=== PATIENT | male | born 1950 | race Caucasian/White ===

== ENCOUNTER → 2020-02-21 | Outpatient (CLI) | payer MEDICARE, BC ==
--- NOTE | 2020-02-21 12:33 | CT ---
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 FINDINGS: Postsurgical change involving the calvarium with area of encephalomalacia involving the left temporal parietal junction. There is a calcified density along the inner table of the left parietal convexity measuring 2 cm which could represent osteoma or calcified meningioma. Mild mass effect along the adj acent cortex. Mild generalized degenerative change. Intracranial atherosclerotic changes are noted. IMPRESSION: 1. Postsurgical change with no residual mass in the region of previous surgical resection. 2. Persistent calcified extra-axial lesion along the inner table with mild mass effect upon the adjac ent cortex of the left parietal convexity. Osteoma versus calcified meningioma stable from prior exam .
== END | disposition home or self-care (01) ==
LOC: RADCTMAIN 12:08
PROVIDERS: ATTEND Family Medicine
DX: G93.89 Other specified disorders of brain (principal); D32.0 Benign neoplasm of cerebral meninges; Z88.5 Allergy status to narcotic agent; Z98.890 Other specified postprocedural states
CPT/HCPCS: 70450

== ENCOUNTER → 2021-04-16 | Outpatient (CLI) | payer MEDICARE, BC | END | disposition home or self-care (01) | LOC: LABPAT 11:24 | PROVIDERS: ATTEND Orthopaedic Surgery | DX: Z01.812 Encounter for preprocedural laboratory examination (principal) | CPT/HCPCS: 87070 ==

== ENCOUNTER → 2021-06-17 | Outpatient (CLI) | payer MEDICARE, BC ==
[2021-06-17 14:40] LABS: Basophils # (A) 0.1 k/uL (0-0.2); Basophils % (A) 1 %; Eosinophils # (A) 0.1 k/uL (0-0.7); Eosinophils % (A) 1 %; HCT 47.1 % (39.0-53.0); Lymphocytes # (A) 2.7 k/uL (1.0-4.8); Lymphocytes % (A) 32 %; MCH 32.2 pg (25.0-35.0); MCV 94.7 fL (80.0-100.0); Mean Platelet Volume 7.5; Monocytes # (A) 0.5 k/uL (0-1.0); Monocytes % (A) 6 %; Neutrophils # (A) 4.9 k/uL (1.3-7.7); Neutrophils % (A) 58 %; Platelet Count 313 k/uL (150-450); RBC 4.98 m/uL (4.30-5.90); RDW 12.4 % (11.5-15.5); WBC 8.4 k/uL (3.8-10.6)
[2021-06-17 14:47] LABS: INR 1.1 (<1.2)
[2021-06-17 14:48] LABS: Prothrombin Time 11.3 sec (9.0-12.0)
[2021-06-17 14:50] LABS: Potassium 4.1 mmol/L (3.5-5.1)
== END | disposition home or self-care (01) ==
LOC: LABPAT 14:20
PROVIDERS: ATTEND Orthopaedic Surgery
DX: Z01.812 Encounter for preprocedural laboratory examination (principal)
CPT/HCPCS: 80051; 85025; 85610

== ENCOUNTER → 2021-06-17 | Outpatient (CLI) | payer MEDICARE, BC | END | disposition home or self-care (01) | LOC: LABWHC1 13:55 | PROVIDERS: ATTEND Orthopaedic Surgery | DX: Z53.9 Procedure and treatment not carried out, unspecified reason (principal) ==

== ENCOUNTER 2021-06-24 13:15 | Day surgery (SDC) | payer MEDICARE, BC ==
[2021-06-20 11:25] VITALS: BMI 34.4
--- NOTE | 2021-06-23 10:27 | HP ---
HISTORY AND PHYSICAL DATE OF SURGERY: 06/24/2021 Darek Gorman is a 70-year-old patient seen with symptomatic right knee osteoarthritis. We discussed options for treatment. He elected to proceed with right total knee arthroplasty. Consent was obtained. Medical clearance was provided by Dr. Ronaldo Bui. PAST MEDICAL HISTORY: Hypertension. PAST SURGICAL HISTORY: Left total knee arthroplasty. DAILY MEDICATIONS: Losartan, hydrochlorothiazide, carvedilol. ALLERGIES: CODEINE. SOCIAL HISTORY: He denies tobacco use. PHYSICAL EVALUATION OF THE RIGHT KNEE: His range of motion is negative 3/4 to 100 degrees. Mild effusion. Tenderness along the medial joint line. Crepitus in medial and patellofemoral compartments with range of motion. Pain with patellofemoral compression. Ligaments stable. Hip rotation without pain. Distal neurovascular exam intact. RADIOGRAPHS: Radiographs of the right knee revealed severe osteoarthritic changes. IMPRESSION: 1. Right knee osteoarthritis. 2. Hypertension. PLAN: Right total knee arthroplasty. MMODL / IJN: [id number] /
[~2021-06-24 13:15] MED LIST: ACETAMINOPHEN TAB 500 MG TAB PO PRN; DEXAMETHASONE SOD PHOSPHATE 4 MG/ML 1 ML VIAL IV ONE; HYDROmorphone 0.5 MG/0.5 ML SYRINGE IVP PRN; MELOXICAM 7.5 MG TAB PO PRN; ONDANSETRON 4 MG/2 ML VIAL IVP ONE; TRANEXAMIC ACID 1,000 MG in SODIUM CHLORIDE 0.9% 100 ML IVPB PRN
[2021-06-24] MEDS ORDERED: ONDANSETRON 4 MG/2 ML VIAL ONE (13:37)
[2021-06-24] MEDS: LACTATED RINGERS 1,000 ML IV SCH ×2 (13:54→23:21)
[2021-06-24] MEDS ORDERED: MIDAZOLAM 2 MG/2 ML VIAL IVP ONE (14:06)
[2021-06-24] MEDS ORDERED: PHENYLEPHRINE-0.9% NACL SYG 1,000 MCG/10 ML SYRINGE ONE (14:27)
[2021-06-24] MEDS ORDERED: KETAMINE 10 MG/ML 20 ML VIAL ONE (14:27)
[2021-06-24] MEDS ORDERED: MIDAZOLAM 2 MG/2 ML VIAL ONE (14:27)
[2021-06-24] MEDS ORDERED: fentaNYL (PF) 50 MCG/ML 2 ML AMP ONE (14:27)
[2021-06-24] MEDS ORDERED: PROPOFOL 10 MG/ML 20 ML VIAL IV ONE (14:27)
[2021-06-24] MEDS ORDERED: ROPIVACAINE 5 MG/ML 30 ML VIAL ONE (14:27)
[2021-06-24] MEDS ORDERED: SODIUM CHLORIDE 0.9% 100 ML BAG ONE (14:27)
[2021-06-24] MEDS ORDERED: TRANEXAMIC ACID 1,000 MG/10 ML VIAL ONE (14:27)
[2021-06-24] MEDS ORDERED: DEXAMETHASONE SOD PHOSPHATE 4 MG/ML 1 ML VIAL ONE (14:27)
[2021-06-24] MEDS ORDERED: ONDANSETRON 4 MG/2 ML VIAL IVP PRN (16:50)
[2021-06-24] MEDS ORDERED: HYDROmorphone 0.2 MG/1 ML SYRINGE IVP PRN (16:50)
[2021-06-24] MEDS ORDERED: HYDROmorphone 0.5 MG/0.5 ML SYRINGE IVP PRN (16:50)
[2021-06-24] MEDS ORDERED: traMADol 50 MG TAB PO PRN (16:50)
[2021-06-24] MEDS ORDERED: HYDROcodone/APAP 5-325MG 1 EACH TAB PO PRN ×2 (16:50)
[2021-06-24] MEDS ORDERED: NALOXONE 0.4 MG/ML 1 ML VIAL IV PRN (16:50)
--- NOTE | 2021-06-24 16:50 | P.OP ---
Date of Procedure: 06/24/21 Preoperative Diagnosis: Right knee osteoarthritis Postoperative Diagnosis: Right knee osteoarthritis Procedure(s) Performed: Right total knee arthroplasty Implants: 1. Depuy attune size 8 right cruciate retaining cemented femur 2. Depuy attune size 8 fixed bearing cemented tibial baseplate 3. Depuy attune size 8 fixed bearing cruciate retaining 10 mm polyethylene tibial insert 4. Depuy attune 41 mm all polyethylene cemented patella Anesthesia: regional (Adductor canal catheter, Ipack block), spinal Surgeon: Nnamdi Sánchez Spooler Operator #1: Teto Schneider Estimated Blood Loss (ml): 45 Pathology: other (bone) Condition: stable Disposition: PACU Indications for Procedure: 70-year-old patient with symptomatic right knee osteoarthritis. After treatment options were discussed, he elected to proceed with total knee arthroplasty. Operative Findings: see description of procedure Description of Procedure: Patient was taken to the operative suite after having an adductor canal catheter placed by the department of anesthesia as well as and Ipack block for postoperative pain management. Patient underwent a spinal anesthetic by the department of anesthesia. Patient was given preoperative IV intake antibiotics and TXA. A well-padded tourniquet was placed about the right lower extremity. The lower extremity was then prepped and draped in the normal sterile orthopedic fashion. The extremity was elevated, a tourniquet was insufflated to 300. A standard anterior incision was made sharply through skin. Dissection was taken down through the subcutaneous soft tissues down to the extensor mechanism. A medial arthrotomy was performed, patella was everted and knee was flexed. There was advanced osteoarthritis noted. I introduced my distal intramedullary femoral drill. I then introduced the distal femoral cutting jig. Denton SALAZAR secured the cutting jig with 2 pins. I held retractors in position while Denton SALAZAR performed the distal femoral resection through the guide area we now removed her distal femoral cutting guide. We now placed our 4-in-1 femoral cutting block and positioned and it was secured with 2 pins by Denton SALAZAR while I held the block in position. The distal femoral finishing was now completed. A proximal tibial cutting guide was positioned. I held the guide in the appropriate position with both hands well Denton SALAZAR inserted stabilizing pins into the guide. Proximal tibial cut was made. We now placed a trial femoral component into position, along with an appropriate size tibial tray and insert. We now took the knee through range of motion and had full extension good flexion and good overall soft tissue balance noted. The patella was everted and stabilized with 2 towel clips held by Denton SALAZAR while I performed a flush with patellar quad tendon utilizing a fresh sawblade. We templated the patella, appropriate drill holes were made. An appropriate trial patella was positioned, knee was taken through full range of motion with the patella tracking very nicely. The trial patella was removed. Drill holes were made through the femoral component. All trial components were removed after m arking off the appropriate rotation of the tibia. Retractors were now positioned along the proximal tibia. An appropriate keel punch was made with the appropriate size tibial guide by myself on Denton SALAZAR assisted by holding retractors. At this point appropriate size implants were chosen and opened. The joint was irrigated copiously with pulse lavage mechanical irrigation. The posterior capsule was infiltrated with local analgesic. The wound was irrigated with pulse lavage mechanical irrigation. We mixed antibiotic methylmethacrylate. We placed the knee into flexion. We placed mul tiple retractors assisted by Denton SALAZAR to expose the proximal tibia. Once the methyl methacrylate was ready, the tibial component was cemented into place removing any excess methylmethacrylate form by both myself and Denton SALAZAR. The femoral component was cemented into place removing the removing any excess methylmethacrylate performed by both myself and Denton SALAZAR. We then inserted the appropriate size polyethylene tibial insert. We made sure that it was locked into position. We took the knee into full extension, and then back in a flexion making sure we had removed any excess methylmethacrylate. The patellar component was then cemented down and secured with clamp. Excess methylmethacrylate removed. We kept the knee in full extension, patellar clamp in position until methylmethacrylate had hardened. Once it had hardened the patellar clamp was removed. The knee was taken through full range of motion. The patella tracked nicely. There was good soft tissue balancing. The tourniquet was now released. Additional hemostasis was achieved via electrocautery. A second gram of TXA was given. The wound again was irrigated with pulse lavage mechanical irrigation. The superficial soft tissues were infiltrated local analgesic. The extensor mechanism was repaired with interrupted Ethibond. We checked the repair with range of motion and it was stable. The subcutaneous soft tissues were repaired with Vicryl in layers. The skin was approximated with pernio/Dermabond. Sterile dressings were applied followed by loose web roll and Josh bandage. The patient was transferred to a bed, and taken to recovery in stable and satisfactory condition. Denton SALAZAR assisted with this complex procedure.
--- NOTE | 2021-06-24 18:09 | XR ---
EXAMINATION TYPE: XR knee limited RT DATE OF EXAM: 06/24/2021 COMPARISON: 03/19/2021 HISTORY: Knee surgery TECHNIQUE: 2 views FINDINGS: There is right knee prosthesis. Components are in anatomic position. IMPRESSION: No complicating process seen.
[2021-06-24] MEDS: HYDROmorphone 0.5 MG/0.5 ML SYRINGE IVP PRN ×2 (19:33→23:29)
[2021-06-24] MEDS ORDERED: ACETAMINOPHEN TAB 500 MG TAB PO PRN (20:03)
[2021-06-24] MEDS ORDERED: SENNOSIDES-DOCUSATE SODIUM 1 EACH TAB PO SCH (21:00)
[2021-06-24] MEDS ORDERED: CITALOPRAM HYDROBROMIDE 20 MG TAB PO SCH (21:00)
[2021-06-24] MEDS ORDERED: ENOXAPARIN 30 MG/0.3 ML SYRINGE SQ SCH (21:00)
[2021-06-25] MEDS: HYDROmorphone 0.5 MG/0.5 ML SYRINGE IVP PRN (04:03)
[2021-06-25] MEDS: LACTATED RINGERS 1,000 ML IV SCH ×2 (04:05→10:44)
[2021-06-25] MEDS ORDERED: carvediloL 6.25 MG TAB PO SCH (07:30)
--- NOTE | 2021-06-25 07:38 | P.PN ---
Progress Note - Text 06/25/21 650am 70-year-old male status post total knee replacement, patient has an On-Q pump for postop pain control, solution is running at 8 mL an hour with a VAS of 2. Patient does complain of posterior knee pain. She rates it at 8 out of 10 and that's because the Ipack block has worn off
--- NOTE | 2021-06-25 07:41 | P.ANPRN ---
Procedure Note - Anesthesia - Nerve Block Performed Right Adductor Canal Infusion Time Out Performed: Yes Date of Procedure: 06/24/21 Procedure Start Time: 14:05 Procedure Stop Time: 14:09 Location of Patient: PreOp Indication: Acute Post-Operative Pain, Requested by Surgeon Sedation Type: Sedate with meaningful contact maintained Preparation: Sterile Prep, Sterile Dressing Position: Supine Catheter: Indwelling Needle Types: Pajunk Needle Gauge: 21 Ultrasound used to visualize needle placement: Yes Ultrasound used to observe medication spread: Yes Blood Aspirated: No Pain Paresthesia on Injection Noted: No Resistance on Injection: Normal Image Stored and Saved: Yes Events: Uneventful and Well Tolerated (Ropivacaine 0.5% 20 mL)
--- NOTE | 2021-06-25 07:42 | P.ANPRN ---
Procedure Note - Anesthesia - Nerve Block Performed Right Ashleyck Single Time Out Performed: Yes Date of Procedure: 06/25/21 Procedure Start Time: 14:20 Procedure Stop Time: 14:24 Location of Patient: PreOp Indication: Acute Post-Operative Pain, Requested by Surgeon Sedation Type: Sedate with meaningful contact maintained Preparation: Sterile Prep Position: Supine Needle Types: Pajunk Needle Gauge: 21 Ultrasound used to visualize needle placement: Yes Ultrasound used to observe medication spread: Yes Blood Aspirated: No Pain Paresthesia on Injection Noted: No Resistance on Injection: Normal Image Stored and Saved: Yes Events: Uneventful and Well Tolerated (Ropivacaine 0.5% 20 mL plus dexamethasone 4 mg)
[2021-06-25 08:19] VITALS: BP 124/73; PULSE 79; RESP 16; TEMP 98.3
[2021-06-25] MEDS ORDERED: MELOXICAM 7.5 MG TAB PO SCH (09:00)
[2021-06-25] MEDS ORDERED: LOSARTAN 50 MG TAB PO SCH (09:00)
[2021-06-25] MEDS ORDERED: APIXABAN 5 MG TAB PO SCH (09:00)
[2021-06-25] MEDS ORDERED: MULTIVITAMINS, THERA 1 EACH TAB PO SCH (09:00)
[2021-06-25] MEDS ORDERED: hydroCHLOROthiazide 25 MG TAB PO SCH (09:00)
[2021-06-25 10:15] LABS: Basophils # (A) 0.03 X 10*3/uL (0.00-0.10); Basophils % (A) 0.2 %; Eosinophils # (A) 0 X 10*3/uL (0.04-0.35); Eosinophils % (A) 0 %; HCT 39.9 % (39.6-50.0); HGB 13.6 g/dL (13.0-17.0); Lymphocytes % (A) 16.7 %; MCH 32.2 pg (27.0-32.0); MCHC 34.1 g/dL (32.0-37.0); MCV 94.5 fL (80.0-97.0); Mean Platelet Volume 10.5 fL (9.5-12.2); Monocytes # (A) 1.46 X 10*3/uL (0.20-1.00); Monocytes % (A) 11.1 %; Neutrophils % (A) 71.5 %; Platelet Count 317 X 10*3/uL (140-440); RBC 4.22 X 10*6/uL (4.40-5.60); RDW 12.4 % (11.5-14.5); WBC 13.15 X 10*3/uL (4.50-10.00)
[2021-06-25] MEDS ORDERED: PANTOPRAZOLE 40 MG/10 ML VIAL IVP SCH (10:15)
--- NOTE | 2021-06-25 10:22 | P.CONS ---
History of Present Illness - Reason for Consult Consult date: 06/25/21 Medical management hypertension, atrial fibrillation, anxiety Requesting physician: Nnamdi Sánchez - Chief Complaint Symptomatic Osteoarthritis, right knee - History of Present Illness This is a pleasant 70-year-old gentleman status post right total knee arthroplasty secondary symptomatic right knee osteoarthritis, in a patient with past medical history of chronic atrial fibrillation, hypertension, osteoarthritis, anxiety, former smoker other medical issues. Tolerated procedure well. Reports positive pain-states more pain with this operation compared to prior surgery. Passing flatus. Denies lightheadedness dizziness or focal deficits. PT pending. Denies chest pain, palpitations or shortness of breath. Vital signs stable, afebrile, maintaining O2 sats in the 90s on room air. WBC 13.15, suspect reactive. Review of Systems Constitutional: Denied any fatigue denied any fever. Cardio vascular: denied any chest pain, palpitations Gastrointestinal denied any nausea vomiting Pulmonary: Denied any shortness of breath cough Neurologic denied any new focal deficits ROS Statement: Those systems with pertinent positive or pertinent negative responses have been documented in the HPI. ROS Other: All systems not noted in ROS Statement are negative. Past Medical History Past Medical History: Atrial Fibrillation, Hypertension, Osteoarthritis (OA) History of Any Multi-Drug Resistant Organisms: None Reported Past Surgical History: Joint Replacement Additional Past Surgical History / Comment(s): total left knee, left parietal craniotomy for meningioma. Past Anesthesia/Blood Transfusion Reactions: No Reported Reaction Past Psychological History: Anxiety Smoking Status: Former smoker Past Alcohol Use History: Occasional Additional Past Alcohol Use History / Comment(s): quit smoking 1973, hx of 2 ppd., smoked 10 years. Past Drug Use History: None Reported - Past Family History Mother Family Medical History: Cancer Additional Family Medical History / Comment(s): bone cancer Father Family Medical History: Cancer Additional Family Medical History / Comment(s): lung cancer Medications and Allergies Home Medications Medication Instructions Recorded Confirmed Type Acetaminophen [Tylenol Extra 1,000 mg PO DIRECTED PRN 06/20/21 06/24/21 History Strength] Apixaban [Eliquis] 5 mg PO BID 06/20/21 06/24/21 History Citalopram Hydrobromide 20 mg PO HS 06/20/21 06/24/21 History [Citalopram HBr] Losartan Potassium 100 mg PO DAILY 06/20/21 06/24/21 History Multivit-Mins/Iron/Folic/Lycop 1 each PO DAILY 06/20/21 06/24/21 History [Centrum Men's Tablet] carvediloL phosphate [Coreg Cr] 20 mg PO DAILY 06/20/21 06/24/21 History hydroCHLOROthiazide 25 mg PO DAILY 06/20/21 06/24/21 History Allergies Allergy/AdvReac Type Severity Reaction Status Date / Time codeine Allergy Unknown Itching Verified 06/24/21 13:33 Physical Exam Vitals: Vital Signs Temp Pulse Resp BP Pulse Ox 06/25/21 08:00 98.3 F 79 16 124/73 96 06/25/21 02:20 98.0 F 97 148/82 94 L 06/24/21 20:11 82 116/76 92 L 06/24/21 19:41 77 121/86 94 L 06/24/21 19:12 97 121/86 06/24/21 18:56 81 108/77 95 06/24/21 18:42 97.4 F L 74 18 137/98 97 06/24/21 18:41 82 126/94 06/24/21 18:26 99 128/94 96 06/24/21 18:12 97.4 F L 97 137/98 97 06/24/21 17:30 90 16 142/90 96 06/24/21 17:15 86 16 132/86 96 06/24/21 17:00 96.8 F L 89 16 125/88 96 06/24/21 14:27 90 16 125/83 98 06/24/21 13:40 97.1 F L 84 16 181/94 98 Intake and Output 06/24/21 06/25/21 06/25/21 22:59 06:59 14:59 Intake Total 800 600 Output Total 45 200 Balance 755 400 Intake: IV 200 Oral 600 600 Output: Urine 200 Estimated Blood Loss 45 Other: Voiding Method Urinal # Voids 3 Weight 110.5 kg PHYSICAL EXAM: VITAL SIGNS: As above GENERAL: Sitting up in bed, no acute distress HEENT: Conjunctivae normal. eyes normal. Oral mucosa moist NECK: No JVD. No thyroid enlargement. No LNs CARDIOVASCULAR: S1, S2 regular.No murmur RESPIRATION: Breath sounds diminished in the bases. No rhonchi or crackles. No bronchial breathing. ABDOMEN: Soft, nontender . No guarding. no masses palpable. No ascites, No hepatosplenomegaly.Bowel sounds heard. EXTREMITIES: Right knee dressings clean dry and intact, mild edema, denies calf pain, positive DP pulse PSYCHIATRY: Alert and oriented X3, mood and affect normal. NERVOUS SYSTEM: Cranial N 2-12 grossly normal. Moves all 4 limbs. No focal deficits. Strength and sensation grossly intact.. Skin: Warm and dry, no rash Assessment and Plan Assessment: Symptomatic right knee osteoarthritis, status post right total knee arthroplasty Leukocytosis mild, suspect reactive Hypertension Chronic atrial fibrillation Former nicotine dependence Anxiety Plan: Continue on current medication regime ,monitoring and symptomatic treatment. Home meds have been reviewed and resumed accordingly. PPI added on for GI prophylaxis. Continues on Eliquis for anticoagulation. Leukocytosis, Suspect Reactive, UA with Culture Ordered. Repeat CBC and BMP in a.m. if not discharged. PT pending. Pain management as per orthopedic surgery. Aggressive pulmonary toileting with incentive spirometer reinforced. Potential discharge home later today as per primary/orthopedic surgery. Follow-up with Dr. Bui, PCP in 1 week post discharge. Thank you Dr. Sánchez for the consult. The impression and plan of care has been dictated as directed. : I performed a history and examination of this patient, discussed the same with the dictator. I agree with the dictator's note ,documented as a scribe. Any additional findings or plans will be noted.
--- NOTE | 2021-06-25 10:45 | P.PN ---
Subjective Progress Note Date: 06/25/21 Principal diagnosis: Status post right total knee arthroplasty Patient is examined bedside, he is resting comfortably. He is ambulating well with therapy, he has had no difficulties. Pain is currently controlled with current medication. Denies any headaches, lightheadedness, chest pain or shortness of breath. He denies any difficulties with urination at this time. Objective - Vital Signs Vital signs: Vital Signs Temp 98.3 F 06/25/21 08:00 Pulse 79 06/25/21 08:00 Resp 16 06/25/21 08:00 BP 124/73 06/25/21 08:00 Pulse Ox 96 06/25/21 08:00 Intake & Output 06/24/21 06/25/21 06/25/21 18:59 06:59 18:59 Intake Total 750 1200 Output Total 45 200 Balance 705 1000 Weight 110.5 kg Intake: IV 750 Oral 1200 Output: Urine 200 Estimated Blood Loss 45 Other: Voiding Method Urinal Urinal # Voids 3 - Exam Right lower extremity: Incision is clean, dry, and intact. The exofin fusion tape is in good condition. There is minimal soft tissue swelling and ecchymosis surrounding the medial and lateral aspects of the incision. Calf is soft, no tenderness with palpation. Plantar flexion, dorsiflexion, EHL, FHL are intact. Sensory exam to light touch throughout the extremity is intact, dorsal pedis pulses 2+. - Labs CBC & Chem 7: 06/25/21 05:49 Labs: Abnormal Lab Results - Last 24 Hours (Table) 06/25/21 Range/Units 05:49 WBC 13.15 H (4.50-10.00) X 10*3/uL RBC 4.22 L (4.40-5.60) X 10*6/uL MCH 32.2 H (27.0-32.0) pg Immature Gran # 0.06 H (0.00-0.04) X 10*3/uL Neutrophils # 9.40 H (1.80-7.70) X 10*3/uL Monocytes # 1.46 H (0.20-1.00) X 10*3/uL Eosinophils # 0 L (0.04-0.35) X 10*3/uL Assessment and Plan Assessment: Postoperative day #1 status post right total knee arthroplasty Plan: Pain control, plan for discharge home on [place] along with Lyrica GI and DVT prophylaxis, aspirin 81 mg twice a day for 30 days Home care instructions were discussed, this to include removal of the OnQ ball catheter and showering instructions Icing and elevating techniques discussed Home health care, this including therapy at home Discharge planning: Patient is stable for discharge home today Time with Patient: Less than 30
--- NOTE | 2021-06-25 10:50 | P.DS ---
Providers Date of admission: 06/24/2021 Expected date of discharge: 06/25/21 Attending physician: Nnamdi Sánchez Consults: 06/24/21 16:50 Consult Physician Routine Consulting Provider: Ronaldo Bui Reason/Comments: Medical management Do you want consulting provider notified?: Yes Primary care physician: Ronaldo Bui Hospital Course: Date of admission: 06/24/2021 Date of discharge: 06/25/2021 Admission diagnosis: Status post right total knee arthroplasty Discharge diagnosis: Same Attending physician: Dr. Sánchez Surgical procedures: Right total knee arthroplasty Brief history: Patient is a 70-year-old male with a history of progressive primary right knee osteoarthritis. At this point patient has failed conservative treatment measures and has opted to proceed with a elective right total knee arthroplasty. Hospital course: Details of patient's surgery can be found in operative report. Patient tolerated the procedure well and was subsequently transported to orthopedic floor. Patient's orthopeidc and medical care was provided daily. Patient had daily laboratory tests performed for evaluation of overall blood counts. Patient had daily physical therapy to include strengthening range of motion as well as education with walker ambulation. Patient was treated with Eliquis for their postoperative DVT prophylaxis during their inpatient stay. Patient was noted to have a relatively uneventful postoperative course. Patient reported satisfactory pain control with oral pain medications by postoperative day 0. Patient showed satisfactory progress with physical therapy. Patient moved steadily through the program and had no difficulty meeting the goals by postoperative day 1. Given patient's otherwise satisfactory course and having met physical therapy goals, plan is to discharge patient home on postoperative day 1. Discharge condition/disposition: Patient will be discharged home in stable condition. Discharge medications: Instructions are given on resumption of patient's normal daily medications per primary care recommendation, in addition patient will be prescribed Adrian 5 mg/325 mg, Lyrica 75 mg. Discharge instructions: 1. Wound care and infection precautions, keep incision dry and covered while showering, no lotions, creams, moisturizers. No soaking, tubs, pools, hottubs. Do not scrub over the incision. 2. Weight-bear as tolerated with walker / cane until follow-up. 3. Ice and elevate when necessary. Do not exceed 20 minutes per hour with ice pack. 4. Utilize compression sleeve until seen at first follow up appointment. 5. Visiting nursing care. 6. Home physical therapy including home CPM. 7. Pain meds and anticoagulants per prescription. 8. Pain medication has potential to cause constipation. Increase oral fluid and fiber intake. Contact primary care provider if you have not had a bowel movement within 48 hours after discharge 9. No anti-inflammatory medication until discussed at first post operative vi sit, this including Motrin, Aleve, Mobic, Diclofenac. 10. Follow up in office at 2 weeks postop with Denton Schneider PA-C/Nadeem Olivera 11. Follow up with your primary care doctor 7-10 days after discharge. 12. Contact [facility] with any questions, . Procedures: Right total knee arthroplasty Patient Condition at Discharge: Good Plan - Discharge Summary Discharge Rx Participant: Yes New Discharge Prescriptions: New Pregabalin [Lyrica] 75 mg PO BID 14 Days #21 cap HYDROcodone/APAP 5-325MG [Adrian 5-325] 1 - 2 tab PO Q6HR PRN #42 tab PRN Reason: Pain No Action Losartan Potassium 100 mg PO DAILY hydroCHLOROthiazide 25 mg PO DAILY Acetaminophen [Tylenol Extra Strength] 1,000 mg PO DIRECTED PRN PRN Reason: Pain carvediloL phosphate [Coreg Cr] 20 mg PO DAILY Apixaban [Eliquis] 5 mg PO BID Citalopram Hydrobromide [Citalopram HBr] 20 mg PO HS Multivit-Mins/Iron/Folic/Lycop [Centrum Men's Tablet] 1 each PO DAILY Discharge Medication List Acetaminophen [Tylenol Extra Strength] 1,000 mg PO DIRECTED PRN 06/20/21 [History] Apixaban [Eliquis] 5 mg PO BID 06/20/21 [History] Citalopram Hydrobromide [Citalopram HBr] 20 mg PO HS 06/20/21 [History] Losartan Potassium 100 mg PO DAILY 06/20/21 [History] Multivit-Mins/Iron/Folic/Lycop [Centrum Men's Tablet] 1 each PO DAILY 06/20/21 [History] carvediloL phosphate [Coreg Cr] 20 mg PO DAILY 06/20/21 [History] hydroCHLOROthiazide 25 mg PO DAILY 06/20/21 [History] HYDROcodone/APAP 5-325MG [Adrian 5-325] 1 - 2 tab PO Q6HR PRN #42 tab 06/25/21 [Rx] Pregabalin [Lyrica] 75 mg PO BID 14 Days #21 cap 06/25/21 [Rx] Follow up Appointment(s)/Referral(s): Ronaldo Bui DO [Primary Care Provider] - 1 Week [facility],Equipment [NON-STAFF] - (*Please call [facility] once home to arrange delivery of continuous passive motion (CPM) machine. ) Nnamdi Sánchez DO [Doctor of Osteopathic Medicine] - 07/12/21 8:40 am [facility], [NON-STAFF] - ([facility] will call you to schedule your home care visits. ) Activity/Diet/Wound Care/Special Instructions: Orthopedic Discharge Instructions: 1. Wound care and infection precautions, keep incision dry and covered while showering, no lotions, creams, moisturizers. No soaking, pools, hot tubs. Do not scrub over incision. 2. Weight-bear as tolerated with walker / cane until follow-up. 3. Ice and elevate when necessary. Do not exceed 20 minutes per hour with ice pack. 4. Utilize compression sleeve until seen at first follow up appointment. 5. Pain meds and anticoagulants per prescription. 6. Pain medication has potential to cause constipation. Increase oral fluid and fiber intake. Contact primary care provider if you have not had a bowel movement within 48 hours after discharge. 7. No anti-inflammatory medication until discussed at first post operative visit, this including Motrin, Aleve, Mobic, Diclofenac. 8. Follow up in office at 2 weeks postop with Denton Schneider PA-C/Nadeem Santillan PA-C 9. Follow up with your primary care doctor 7-10 days after discharge. 10. Contact [facility] with any questions, . Wound care instructions 1. Okay to remove foam dressing on 07/01/2021 2. Keep incision covered and dry while showering UA/culture results to PCP, Dr. Bui Discharge Disposition: HOME WITH HOME HEALTH SERVICES
== END 2021-06-25 13:14 | disposition home health service (06) ==
LOC: OR 13:15 → 4SSUR 16:54 → OR 06-25 13:14
PROVIDERS: ATTEND Orthopaedic Surgery
DX: M17.11 Unilateral primary osteoarthritis, right knee (principal); I10 Essential (primary) hypertension; I48.20 Chronic atrial fibrillation, unspecified; F41.9 Anxiety disorder, unspecified; Z20.822 Contact with and (suspected) exposure to COVID-19; D32.9 Benign neoplasm of meninges, unspecified; Z96.652 Presence of left artificial knee joint; Z87.891 Personal history of nicotine dependence; Z80.8 Family history of malignant neoplasm of other organs or systems; Z80.1 Family history of malignant neoplasm of trachea, bronchus and lung; Z98.890 Other specified postprocedural states; Z79.01 Long term (current) use of anticoagulants; Z79.899 Other long term (current) drug therapy; Z88.5 Allergy status to narcotic agent
CPT/HCPCS: 97161; 64999; 64448; 76942; 85025; 87635; 73560; 27447; C1776; C1713 ×2; J2250; J1100; J0690 ×2; J2405; J1650; C9113; J1170 ×2; 88300

== ENCOUNTER → 2022-01-10 | Outpatient (CLI) | payer MEDICARE, BC ==
--- NOTE | 2022-01-13 08:14 | US ---
EXAMINATION TYPE: US thyroid st tissue head/neck DATE OF EXAM: 01/10/2022 COMPARISON: NONE CLINICAL HISTORY: R22.1 NECK MASS, R22.0 Swelling. lump right neck for 2 months. no pain or changes i n size multiple lymph nodes right neck, largest = 2.8 x 2.0 x 3.9cm and 3.8 x 1.5 x 2.1cm small 0.5cm hypoechoic nodule left thyroid lobe Abnormal right neck adenopathy with enlarged lymph nodes having suspicious eccentric cortical thicken ing. IMPRESSION: Abnormal adenopathy. Differential includes neoplasm such as lymphoma. Advise follow-up. Advise contrast enhanced neck CT to further evaluate.
== END | disposition home or self-care (01) ==
LOC: RADUSWWP 12:09
PROVIDERS: ATTEND Family Medicine
DX: R59.0 Localized enlarged lymph nodes (principal)
CPT/HCPCS: 76536

== ENCOUNTER 2022-01-21 08:00 | Day surgery (SDC) | payer MEDICARE, BC ==
[~2022-01-21 08:00] MED LIST changes: -ACETAMINOPHEN TAB 500 MG TAB PO PRN; -DEXAMETHASONE SOD PHOSPHATE 4 MG/ML 1 ML VIAL IV ONE; -HYDROmorphone 0.5 MG/0.5 ML SYRINGE IVP PRN; +LACTATED RINGERS 1,000 ML IV SCH; -MELOXICAM 7.5 MG TAB PO PRN; -ONDANSETRON 4 MG/2 ML VIAL IVP ONE; +SODIUM CHLORIDE 0.9% 1,000 ML IV SCH; -TRANEXAMIC ACID 1,000 MG in SODIUM CHLORIDE 0.9% 100 ML IVPB PRN
[2022-01-21 08:34] VITALS: TEMP 98.4
[2022-01-21] MEDS ORDERED: PROPOFOL 10 MG/ML 20 ML VIAL IV ONE (09:01)
[2022-01-21] MEDS ORDERED: BENZOCAINE SPRAY 1 CAN MUCOUS MEM ONE (09:05)
[2022-01-21] MEDS ORDERED: BENZOCAINE SPRAY 1 CAN TOPICAL ONE (09:05)
[2022-01-21] MEDS ORDERED: SODIUM CHLORIDE 0.9% 1,000 ML IV SCH (09:30)
[2022-01-21 09:37] VITALS: RESP 16
[2022-01-21 11:23] VITALS: BP 136/86; PULSE 63
--- NOTE | 2022-01-22 10:16 | P.TEE ---
Date of Procedure: 01/21/22 Preoperative Diagnosis: Atrial fibrillation Postoperative Diagnosis: Successful conversion to sinus rhythm Procedure(s) Performed: RADHA followed by cardioversion Description of Procedure(s): This is a 71-year-old gentleman with history of atrial fibrillation diagnosed about 5 months ago. Patient is still having exertional shortness of breath and wanted have cardioversion and was brought for elective cardioversion. INDICATION: Atrial fibrillation. Rule out left atrial thrombus before cardioversion CONSENT:. Informed verbal consent is obtained from the patient PROCEDURE: Patient was brought to the lab in a fasting state. He was prepped and draped in the usual fashion. The throat was sprayed with Cetacaine. Department of anesthesia provided intravenous anesthesia. A lubricated Omni probe was introduced in the oropharynx and was advanced into the esophagus. Multiple views were obtained. Patient tolerated the procedure well. Color, pulsed and continuous and Doppler studies were performed. Saline contrast b ubble injection was also performed The aortic valve function appear to be normal. The mitral valve showed a central regurgitation which appears to be moderate to severe. Left atrial appendage is free of any clot. There is left atrial enlargement with evidence of smoke. The interatrial septum appeared intact without any spontaneous shunt. Injection of the saline bubbles did not show any crossing of bubbles across the interatrial septum. Left ankle function appear to be mildly impaired FINDINGS: #1. No clot in the left atrial appendage #2. Left atrial enlargement with smoke #3. No PFO #4. 2-3+ mitral regurgitation #4. Mildly impaired LV function IMPRESSION: No clot in the left atrial appendage PLAN: Proceed with cardioversion
--- NOTE | 2022-01-22 10:18 | P.PCN ---
Date of Procedure: 01/21/22 Preoperative Diagnosis: Atrial fibrillation with controlled ventricular response Postoperative Diagnosis: Successful cardioversion to sinus rhythm Procedure(s) Performed: RADHA followed by cardioversion Description of Procedure: RADHA followed by cardioversion. This patient was brought in for elective cardioversion. RADHA showed no evidence of any clot in the left atrial appendage. Department of anesthesia provided anesthesia. Anterior posterior paddles were applied. A single shock of 100 J was applied. Patient tolerated the procedure well. Converted to sinus rhythm. No arrhythmias noted. Final impression #1. Successful cardioversion. Plan: Patient will be monitored for the next 2-3 hours. If stable will be discharged home
== END 2022-01-21 11:39 | disposition home or self-care (01) ==
LOC: CATHCVL 08:00
PROVIDERS: ATTEND Internal Medicine Cardiovascular Disease
DX: I34.0 Nonrheumatic mitral (valve) insufficiency (principal); I48.19 Other persistent atrial fibrillation; I10 Essential (primary) hypertension; E66.9 Obesity, unspecified; Z68.34 Body mass index [BMI] 34.0-34.9, adult; Z87.891 Personal history of nicotine dependence; Z20.822 Contact with and (suspected) exposure to COVID-19; Z79.01 Long term (current) use of anticoagulants; Z79.899 Other long term (current) drug therapy; Z88.5 Allergy status to narcotic agent
CPT/HCPCS: 93312; 93320; 93325; 92960; 87635; J2704

== ENCOUNTER → 2022-01-29 | Outpatient (CLI) | payer MEDICARE, BC ==
[2022-01-29 17:46] LABS: African American GFR (CKD) >90 (>60 ml/min/1.73 sqM); Blood Urea Nitrogen 20 mg/dL (9-20); Non-African American GFR(CKD) 86 (>60 ml/min/1.73 sqM)
--- NOTE | 2022-01-29 23:48 | CT ---
EXAMINATION TYPE: CT soft tissue neck w con DATE OF EXAM: 01/29/2022 6:23 PM COMPARISON: Ultrasound dated 01/10/2022 HISTORY: R side lump/swelling CT DLP: 754.60 mGycm Automated exposure control for dose reduction was used. CONTRAST: CT scan of the neck is performed following with IV Contrast, patient injected with 100 mL of Isovue 3 00. Axial images are obtained, coronal and sagittal reformatted images are reviewed. FINDINGS: Artifacts from the dental work. Multiple enlarged right cervical lymph nodes. For example, a right le [place] 2 lymph node measures 19 mm. A more inferior right level 2 lymph node measures 2.6 cm. A right le [place] 3 lymph node measures 15 mm. Measurements are along the short axis diameters. No central necrosis or calcification. Other scattered subcentimeter bilateral cervical and submandibular lymph nodes, no nspecific. Slightly prominent right lingual tonsil, nonspecific. Otherwise unremarkable nasopharynx, oropharynx, hypopharynx, larynx, trachea and visualized portion of the esophagus. Unremarkable thyroid gland. Sy mmetrical unremarkable parotid and submandibular salivary glands. Scattered arterial atherosclerotic calcifications. Degenerative changes of the cervical spine most ev ident at C4-5, C5-6 and C6-7 levels. Left parieto-occipital craniotomy. Subtle bilateral apical pulmo nary groundglass opacities, nonspecific. IMPRESSION: Slightly prominent right lingual tonsil, nonspecific. Right cervical pathologically enlarged lymph no cee as described above, also nonspecific. They could represent lymphoma or other lymphoproliferative disease however metastatic lymph nodes from a hidden head and neck cancer cannot be excluded. Recommend clinical correlation, further workup and further PET scan assessment. Tissue diagnosis can be also considered. Other findings as described above.
== END | disposition home or self-care (01) ==
LOC: RADCTMAIN 17:01
PROVIDERS: ATTEND Otolaryngology
DX: R22.1 Localized swelling, mass and lump, neck (principal)
CPT/HCPCS: 82565; 84520; 70491; 36415; Q9967

== ENCOUNTER 2022-02-21 08:49 | Day surgery (SDC) | payer MEDICARE, BC ==
[2022-02-21 10:09] VITALS: TEMP 98.1
[2022-02-21 10:20] VITALS: BP 144/99; PULSE 56; RESP 18
--- NOTE | 2022-02-21 11:45 | US ---
EXAMINATION TYPE: US FNA first lesion DATE OF EXAM: 02/21/2022 HISTORY: Right neck adenopathy FINDINGS: Maximal barrier technique was utilized. Hand hygiene achieved with soap and water and alco hol-based hand rub. The skin overlying a suitable path to the patient's adenopathy in the right subma ndibular location was localized with ultrasound and the overlying skin prepped and draped. Ultrasoun d was utilized with sterile technique. Lidocaine was used for local anesthesia. 3 passes with a 25-g auge needle were made into the enlarged lymph node and aspirated specimen was obtained and submitted to cytology. Following the procedure, hemostasis achieved and the patient is discharged in stable con dition without complication. No core specimen was obtained due to proximity of vasculature. IMPRESSION:STATUS POST ULTRASOUND GUIDED FINE-NEEDLE ASPIRATION OF RIGHT SUBMANDIBULAR ADENOPATHY, MARIE THOLOGY IS PENDING. THIS PROCEDURE IS PERFORMED BY THE UNDERSIGNED.
== END 2022-02-21 10:30 | disposition home or self-care (01) ==
LOC: RADPROMAIN 08:49
PROVIDERS: ATTEND Otolaryngology
DX: R59.0 Localized enlarged lymph nodes (principal); Z88.5 Allergy status to narcotic agent; Z79.01 Long term (current) use of anticoagulants; Z79.899 Other long term (current) drug therapy; Z87.891 Personal history of nicotine dependence; Z80.1 Family history of malignant neoplasm of trachea, bronchus and lung; Z80.8 Family history of malignant neoplasm of other organs or systems
CPT/HCPCS: 10005; 88173; 88184; 88185; 88305

== ENCOUNTER 2022-05-08 12:36 | Day surgery (SDC) | payer MEDICARE, BC ==
[2022-05-06 11:12] VITALS: BMI 34.0
[~2022-05-08 12:36] MED LIST changes: +ACETAMINOPHEN TAB 500 MG TAB PO PRN; +HEPARIN SODIUM,PORCINE/PF 5,000 UNIT/0.5 ML SYRINGE SQ PRN; -LACTATED RINGERS 1,000 ML IV SCH; +Pre Op ABX Message 1 EACH MISC MISCELLANE ONE; -SODIUM CHLORIDE 0.9% 1,000 ML IV SCH
[2022-05-08] MEDS ORDERED: DEXAMETHASONE SOD PHOSPHATE 4 MG/ML 1 ML VIAL IV ONE (12:57)
[2022-05-08] MEDS ORDERED: ONDANSETRON 4 MG/2 ML VIAL IVP ONE (12:57)
[2022-05-08] MEDS ORDERED: LIDOCAINE 1% (10MG/ML) FOR IV START INTRADERMA ONE (13:33)
[2022-05-08] MEDS: LACTATED RINGERS 1,000 ML IV SCH ×2 (13:34→14:39)
--- NOTE | 2022-05-08 14:33 | P.GSHP ---
History of Present Illness H&P Date: 05/08/22 Chief Complaint: Lymphoma 71-year-old male here today for Port-A-Cath placement. Patient recently diagnosed with lymphoma. Patient will be starting chemotherapy soon. He had a recent right neck excisional lymph node biopsy performed using a transverse incision. It was approximate 3 weeks ago. The incision is well-healed. Past Medical History Past Medical History: Atrial Fibrillation, Hypertension, Osteoarthritis (OA) Additional Past Medical History / Comment(s): Hodgkins Lymphoma,occular migaines History of Any Multi-Drug Resistant Organisms: None Reported Past Surgical History: Joint Replacement, Tonsillectomy Additional Past Surgical History / Comment(s): kobe knee replacements, left parietal craniotomy for meningioma, cataract removed right eye Past Anesthesia/Blood Transfusion Reactions: No Reported Reaction Smoking Status: Former smoker - Past Family History Mother Family Medical History: Cancer Additional Family Medical History / Comment(s): bone cancer Father Family Medical History: Cancer Additional Family Medical History / Comment(s): lung cancer Medications and Allergies Home Medications Medication Instructions Recorded Confirmed Type Apixaban [Eliquis] 5 mg PO BID 06/20/21 05/08/22 History Citalopram Hydrobromide 20 mg PO HS 06/20/21 05/08/22 History [Citalopram HBr] Losartan Potassium 100 mg PO QAM 06/20/21 05/08/22 History carvediloL phosphate [Coreg Cr] 20 mg PO QAM 06/20/21 05/08/22 History hydroCHLOROthiazide 25 mg PO DAILY 06/20/21 05/08/22 History Acetaminophen [Tylenol Extra 1,000 mg PO Q6H PRN 02/14/22 05/08/22 History Strength] Dorzolamide-Timol 2.23%/0.68% 1 drop RIGHT EYE BID 02/14/22 05/08/22 History [Cosopt] Latanoprost/Pf [Latanoprost 0.005% 1 drop RIGHT EYE BID 02/14/22 05/08/22 History Eye Drop] Brimonidine Tartrate [Alphagan P 1 drops RIGHT EYE DAILY 04/08/22 05/08/22 History 0.2% Ophth Soln] Allergies Allergy/AdvReac Type Severity Reaction Status Date / Time codeine Allergy Unknown Itching Verified 05/08/22 13:10 Surgical - Exam Vital Signs Temp Pulse Resp BP Pulse Ox 97.8 F 73 18 159/83 99 05/08/22 13:05/08/22 13:05/08/22 13:05/08/22 13:05/08/22 13:09 Physical exam: General: Well-developed, well-nourished HEENT: Normocephalic, sclerae nonicteric, neck incision clean and dry Abdomen: Nontender, nondistended Extremities: No edema Neuro: Alert and oriented Assessment and Plan (1) Lymphoma Narrative/Plan: 71-year-old male with lymphoma. We'll proceed with Port-A-Cath placement at this time. Risks of bleeding, infection, DVT, pneumothorax, catheter malfunction, anesthesia related complications were discussed. The patient understands and wishes to proceed. Current Visit: Yes Status: Acute Code(s): C85.90 - NON-HODGKIN LYMPHOMA, UNSPECIFIED, UNSPECIFIED SITE SNOMED Code(s): 388459000
[2022-05-08] MEDS ORDERED: LIDOCAINE 2% INJ 20 MG/ML (2 ML VIAL) ONE (14:35)
[2022-05-08] MEDS ORDERED: fentaNYL (PF) 50 MCG/ML 2 ML AMP ONE (14:35)
[2022-05-08] MEDS ORDERED: MIDAZOLAM 2 MG/2 ML VIAL ONE (14:35)
[2022-05-08] MEDS ORDERED: SUCCINYLCHOLINE CHLORIDE 200 MG/10 ML VIAL IV ONE (14:35)
[2022-05-08] MEDS ORDERED: ePHEDrine 50 MG/ML 1 ML VIAL ONE (14:35)
[2022-05-08] MEDS ORDERED: PHENYLEPHRINE-0.9% NACL SYG 1,000 MCG/10 ML SYRINGE ONE (14:35)
[2022-05-08] MEDS ORDERED: PROPOFOL 10 MG/ML 20 ML VIAL IV ONE (14:35)
[2022-05-08] MEDS ORDERED: SODIUM CHLORIDE 0.9% 100 ML with ceFAZolin 2,000 MG IV ONE ×4 (15:08)
[2022-05-08] MEDS ORDERED: LIDOCAINE (PF) 10 MG/ML 2 ML VIAL SQ ONE ×2 (15:11)
[2022-05-08] MEDS ORDERED: HEPARIN SODIUM,PORCINE 100 UNIT/ML 5 ML VIAL IV ONE ×2 (15:21)
[2022-05-08] MEDS ORDERED: NALOXONE 0.4 MG/ML 1 ML VIAL IV PRN (16:00)
--- NOTE | 2022-05-08 16:01 | P.OP ---
Date of Procedure: 05/08/22 Procedure(s) Performed: PREOPERATIVE DIAGNOSIS: Lymphoma POSTOPERATIVE DIAGNOSIS: Same PROCEDURE: Port-A-Cath placement with fluoroscopic and ultrasound guidance SURGEON: Fabian EBL: Minimal ANESTHESIA: General COMPLICATIONS: None OPERATIVE PROCEDURE: Patient was brought and placed on the operative table in the supine position. The patient was sedated per anesthesia that time. The chest and neck were prepped and draped in usual sterile fashion. The ultrasound probe was used to identify the location of the right internal jugular vein. The skin was localized with lidocaine. The Seldinger needle was advanced into the IJ under ultrasound guidance. The wire was advanced through the needle under fluoroscopic guidance into the superior vena cava. A port pocket was created in the right infraclavicular location. The catheter was tunneled from the wire entrance site to the port pocket. The port was then connected to the catheter. The dilator introducer was threaded over the guidewire. The guidewire and dilator were then removed. The catheter was advanced through the introducer and introducer was then removed. The tip was seen to be in the right atrial junction via fluoroscopy. A picture of the radiograph showing the tip at the radial digital junction was taken. Port was flushed with both saline and a Hep- Lock solution. There was good flow both in and out of the port. The port was sutured in underlying tissues using 3-0 silk sutures. The subcutaneous tissues were reapproximated using 3-0 Vicryl sutures and the skin at both locations using 4-0 Monocryl sutures. Skin glue and sterile dressings then applied. DISPOSITION: Stable to recovery room
--- NOTE | 2022-05-08 16:10 | XR ---
EXAMINATION TYPE: XR chest 1V confirm line [facility] DATE OF EXAM: 05/08/2022 COMPARISON: NONE HISTORY: Post line placement TECHNIQUE: Single frontal view of the chest is obtained. FINDINGS: There is a port in the right pectoral region coursing via right jugular approach, distal t ip is overlying the superior vena cava. There is no evident pneumothorax or pleural effusion. Patchy densities present at the right lung base, left mid lung. Cardiac mediastinal silhouette within normal limits. Aorta is dense. There is arthropathy present within the shoulders. IMPRESSION: No evident complication status post central venous catheter placement.
--- NOTE | 2022-05-08 16:15 | FL ---
Fluoroscopy HISTORY: Port-A-Cath placement Correlation to chest x-ray same date 4 seconds fluoroscopy time supplied to the referring clinician. 1 intraoperative C-arm images docume nt the procedure. See dictated report from general surgery.
[2022-05-08 16:19] VITALS: TEMP 97.3
[2022-05-08 16:32] VITALS: PULSE 68; RESP 18
[2022-05-08 16:52] VITALS: BP 131/86
[2022-05-09] MEDS ORDERED: fentaNYL (PF) 50 MCG/ML 2 ML AMP IV PRN (07:00)
== END 2022-05-08 17:09 | disposition home or self-care (01) ==
LOC: OR 12:36
PROVIDERS: ATTEND Surgery
DX: Z45.2 Encounter for adjustment and management of vascular access device (principal); C81.90 Hodgkin lymphoma, unspecified, unspecified site; I48.91 Unspecified atrial fibrillation; M19.90 Unspecified osteoarthritis, unspecified site; I10 Essential (primary) hypertension; G43.B0 Ophthalmoplegic migraine, not intractable; Z98.890 Other specified postprocedural states; Z90.89 Acquired absence of other organs; Z98.41 Cataract extraction status, right eye; Z86.011 Personal history of benign neoplasm of the brain; Z87.891 Personal history of nicotine dependence; Z80.8 Family history of malignant neoplasm of other organs or systems; Z80.1 Family history of malignant neoplasm of trachea, bronchus and lung; Z88.5 Allergy status to narcotic agent; Z79.899 Other long term (current) drug therapy
CPT/HCPCS: 36561; 76937; 77001; C1788; J2250; J0330; J2001 ×2; J1642; J1100; J2405; J0690; J3010; J2370; J2704; J1644

== ENCOUNTER → 2022-12-06 | Outpatient (CLI) | payer MEDICARE, BC ==
--- NOTE | 2022-12-08 05:08 | PE ---
EXAMINATION TYPE: PET CT fusion skull to thigh DATE OF EXAM: 12/06/2022 COMPARISON: Outside PET/CT July 09, 2022 and older outside studies HISTORY: Hodgkin lymphoma right neck diagnosed August 2021 completed immunotherapy November 13, 2022 TECHNIQUE: Following the intravenous administration of 12.88 mCi of F-18 FDG, whole body images are performed from the skull base to the midthigh. Images are reviewed on the computer in the coronal, a xial, and sagittal planes. Reconstructed rotating images are created on independent workstation and reviewed on the computer. A localization and attenuation correction CT is performed in conjunction with the PET scan. Blood glucose level equals 105 SCAN: Subsequent Scan FINDINGS: Mean SUV mediastinum: 1.16 Mean SUV liver: 2.04 SKULL BASE AND NECK: Continued positive treatment response with no persistent abnormal hypermetaboli c uptake in the right neck. No new areas of abnormal hypermetabolic uptake noted. CHEST, MEDIASTINUM, AND HILAR REGION: No new areas of abnormal hypermetabolic uptake. ABDOMEN AND PELVIS: Horseshoe type kidney redemonstrated. Normal excretion seen. No new areas of abno rmal hypermetabolic uptake. OSSEOUS STRUCTURES: No new areas of abnormal hypermetabolic uptake. OTHER CT: Stable right internal jugular Mediport catheter. Coronary artery calcification is redemonst rated. There is a new 9 mm right basilar pulmonary nodule axial image 111 which requires follow-up. S cattered tiny pelvic phleboliths redemonstrated. Persistent right scrotal fluid collection or hydroce le again seen. IMPRESSION: 1. Complete positive treatment response on current study. No new or persistent areas of abnormal hype rmetabolic uptake. 2. There is new 9 mm right basilar pulmonary nodule. No abnormal hypermetabolic uptake. Advise diagno stic CT follow-up in 6 months time to reassess.
== END | disposition home or self-care (01) ==
LOC: RADPETMAIN 07:50
PROVIDERS: ATTEND Internal Medicine
DX: C81.91 Hodgkin lymphoma, unspecified, lymph nodes of head, face, and neck (principal); R91.1 Solitary pulmonary nodule
CPT/HCPCS: 78815; A9552

== ENCOUNTER → 2023-01-08 | Outpatient (CLI) | payer MEDICARE, BC ==
[2023-01-08 15:05] LABS: Basophils # (A) 0.05 X 10*3/uL (0.00-0.10); Basophils % (A) 0.7 %; Eosinophils # (A) 0.12 X 10*3/uL (0.04-0.35); Eosinophils % (A) 1.8 %; HGB 14.2 g/dL (13.0-17.0); Immature Grans, Automated 0.1 %; Lymphocytes # (A) 1.63 X 10*3/uL (0.90-5.00); Lymphocytes % (A) 24.1 %; MCH 30.5 pg (27.0-32.0); MCHC 32.3 g/dL (32.0-37.0); MCV 94.6 fL (80.0-97.0); Mean Platelet Volume 10.6 fL (9.5-12.2); Monocytes % (A) 10.3 %; NRBC Per 100 WBC 0 /100 WBCS (0.0-0.0); Neutrophils # (A) 4.26 X 10*3/uL (1.80-7.70); Platelet Count 369 X 10*3/uL (140-440); RBC 4.65 X 10*6/uL (4.40-5.60); RDW 13.7 % (11.5-14.5); WBC 6.77 X 10*3/uL (4.50-10.00)
[2023-01-08 15:42] LABS: BUN/Creat Ratio 21.17 Ratio (12.00-20.00); Blood Urea Nitrogen 20.3 mg/dL (9.0-27.0); Calcium 9.4 mg/dL (8.7-10.3); Carbon Dioxide 27.2 mmol/L (20.0-27.5); Non-African American GFR(CKD) 77.7 (60.0-200.0); Potassium 4.7 mmol/L (3.5-5.5)
== END | disposition home or self-care (01) ==
LOC: LABPAT 11:07
PROVIDERS: ATTEND Internal Medicine
DX: Z01.812 Encounter for preprocedural laboratory examination (principal)
CPT/HCPCS: 80048; 85025

== ENCOUNTER 2023-01-09 10:38 | Day surgery (SDC) | payer MEDICARE, BC ==
[~2023-01-09 10:38] MED LIST changes: -ACETAMINOPHEN TAB 500 MG TAB PO PRN; -HEPARIN SODIUM,PORCINE/PF 5,000 UNIT/0.5 ML SYRINGE SQ PRN; +LACTATED RINGERS 1,000 ML IV SCH; -Pre Op ABX Message 1 EACH MISC MISCELLANE ONE
[2023-01-09 11:26] VITALS: TEMP 97.1
[2023-01-09] MEDS ORDERED: PROPOFOL 10 MG/ML 20 ML VIAL IV ONE (11:59)
[2023-01-09 13:35] VITALS: BP 160/92; PULSE 55; RESP 16
--- NOTE | 2023-01-09 20:25 | P.PCN ---
Description of Procedure: Procedure performed: Synchronized cardioversion Moderate conscious sedation: Moderate conscious sedation was supplied by anesthesia, see separate report. Complications: none Indications: Symptomatic A. fib PROCEDURE: After the risks, benefits and alternatives of the above mentioned procedure was explained in detail with the patient, informed consent was obtained. Patient was brought to the lab in a fasting state. Patient was given sedation by anesthesia. Patient has been taking anticoagulation for the last 30 days without fail. Patient underwent synchronized cardioversion x 1 with 200J with resultant sinus rhythm. Patient tolerated the procedure well. Patient was transferred to the post procedure area in stable and satisfactory condition.
== END 2023-01-09 14:03 | disposition home or self-care (01) ==
LOC: OR 10:38
PROVIDERS: ATTEND Internal Medicine
DX: I48.19 Other persistent atrial fibrillation (principal); I10 Essential (primary) hypertension; F32.A Depression, unspecified; E78.5 Hyperlipidemia, unspecified; Z79.01 Long term (current) use of anticoagulants; Z79.1 Long term (current) use of non-steroidal anti-inflammatories (NSAID); Z79.899 Other long term (current) drug therapy; C85.90 Non-Hodgkin lymphoma, unspecified, unspecified site; Z92.21 Personal history of antineoplastic chemotherapy; Z88.5 Allergy status to narcotic agent
CPT/HCPCS: 93005; 92960; J2704

== ENCOUNTER → 2025-01-23 | Outpatient (CLI) | payer MEDICARE, BC ==
[2025-01-23 18:45] LABS: Basophils # (A) 0.07 X 10*3/uL (0.00-0.10); Basophils % (A) 0.9 %; Eosinophils # (A) 0.19 X 10*3/uL (0.04-0.35); Eosinophils % (A) 2.4 %; HGB 15.8 g/dL (13.0-17.0); Lymphocytes # (A) 2.17 X 10*3/uL (0.90-5.00); MCH 30.9 pg (27.0-32.0); MCHC 33.6 g/dL (32.0-37.0); Mean Platelet Volume 9.8 FL (9.5-12.2); Monocytes # (A) 0.67 X 10*3/uL (0.20-1.00); Monocytes % (A) 8.3 %; NRBC Per 100 WBC 0 X 10*3/uL (0.00-0.01); Neutrophils # (A) 4.92 X 10*3/uL (1.80-7.70); Neutrophils % (A) 61.2 %; Platelet Count 349 X 10*3/uL (140-440); RBC 5.11 X 10*6/uL (4.40-5.60); RDW 12.5 % (11.5-14.5); WBC 8.04 X 10*3/uL (4.50-10.00)
[2025-01-23 19:18] LABS: INR 1.09 sec (0.93-1.11); Prothrombin Time 12.1 sec (9.9-11.9)
[2025-01-23 19:30] LABS: BUN/Creat Ratio 19.12 Ratio (12.00-20.00); Blood Urea Nitrogen 15.3 mg/dL (9.0-27.0); Carbon Dioxide 26.7 mmol/L (21.6-31.8); Chloride 102 mmol/L (96-109); Glucose 95 mg/dL (70-110); Potassium 4.8 mmol/L (3.5-5.5); Sodium 137 mmol/L (135-145)
[2025-01-23 19:31] LABS: Calcium 9.7 mg/dL (8.7-10.3)
== END | disposition home or self-care (01) ==
LOC: LABWHC1 11:30
PROVIDERS: ATTEND Orthopaedic Surgery
DX: Z01.812 Encounter for preprocedural laboratory examination (principal); Z22.322 Carrier or suspected carrier of Methicillin resistant Staphylococcus aureus; M16.12 Unilateral primary osteoarthritis, left hip
CPT/HCPCS: 36415; 80048; 85025; 85610; 87070

== ENCOUNTER → 2025-02-02 | Outpatient (CLI) | payer MEDICARE, BC | END | disposition home or self-care (01) | LOC: LABPAT 13:22 | PROVIDERS: ATTEND Orthopaedic Surgery | DX: Z01.818 Encounter for other preprocedural examination (principal); M16.12 Unilateral primary osteoarthritis, left hip | CPT/HCPCS: 36415; 86850; 86900; 86901; 93005 ==

== ENCOUNTER 2025-02-06 11:02 | Day surgery (SDC) | payer MEDICARE, BC ==
[2025-02-01 12:33] VITALS: BMI 33.0
--- NOTE | 2025-02-06 09:24 | HP ---
HISTORY AND PHYSICAL DATE OF SURGERY: 02/06/2025. HISTORY OF PRESENT ILLNESS: Darek Gorman is a 74-year-old gentleman seen with symptomatic left hip osteoarthritis. We discussed options regarding treatment. He elected to proceed with direct anterior left total hip arthroplasty. Consent regarding the procedure was obtained. Cardiac clearance was provided by Dr. Bradley. Primary care physician is Dr. Marky Bui. PAST MEDICAL HISTORY: Hypertension, hyperlipidemia, and atrial fibrillation. PAST SURGICAL HISTORY: Bilateral total knee arthroplasty. MEDICATIONS: Daily medications are: 1. Carvedilol. 2. Hydrochlorothiazide. 3. Losartan. 4. Eliquis. ALLERGIES: Codeine. SOCIAL HISTORY: He denies current tobacco use. PHYSICAL EVALUATION OF THE LEFT HIP: He has very limited range of motion, severe pain. Positive hip impingement sign. Straight-leg raise is negative. His distal neurovascular exam is intact. IMAGING STUDIES: Radiographs of the left hip revealed severe osteoarthritic changes. IMPRESSION: 1. Left hip osteoarthritis. 2. Hypertension. 3. Hyperlipidemia. 4. Atrial fibrillation. PLAN: Direct anterior left total hip arthroplasty. MMODL / IJN: [id number] /
[~2025-02-06 11:02] MED LIST changes: -LACTATED RINGERS 1,000 ML IV SCH; +TRANEXAMIC 1,000 MG/100ML-NACL 1,000 MG in SALINE 1 100ML.BAG IVPB PRN
[2025-02-06] MEDS: IV FLUID CONTINUATION 1,000 ML IV ONE (11:28)
[2025-02-06] MEDS: MELOXICAM 7.5 MG TAB PO PRN (11:49)
[2025-02-06] MEDS: ACETAMINOPHEN TAB 500 MG TAB PO PRN (11:49)
[2025-02-06] MEDS: LACTATED RINGERS 1,000 ML IV SCH ×2 (12:00→21:53)
[2025-02-06] MEDS: MIDAZOLAM 2 MG/2 ML VIAL IV ONE (12:05)
[2025-02-06] MEDS: DEXAMETHASONE SOD PHOSPHATE 4 MG/ML 1 ML VIAL IVP STA (12:18)
[2025-02-06] MEDS: ONDANSETRON 4 MG/2 ML VIAL IVP STA (12:18)
[2025-02-06] MEDS: fentaNYL (PF) 50 MCG/ML 2 ML AMP IV PRN (12:21)
[2025-02-06] MEDS ORDERED: fentaNYL (PF) 50 MCG/ML 2 ML AMP ONE (12:51)
[2025-02-06] MEDS ORDERED: TRANEXAMIC 1,000 MG/100ML-NACL PREMIX BAG ONE (12:51)
[2025-02-06] MEDS ORDERED: ePHEDrine 50 MG/ML 1 ML VIAL ONE (12:51)
[2025-02-06] MEDS ORDERED: PROPOFOL 10 MG/ML 20 ML VIAL IV ONE (12:51)
[2025-02-06] MEDS ORDERED: KETAMINE HCL IN 0.9 % NACL 50 MG/5 ML SYRINGE ONE (12:51)
[2025-02-06] MEDS ORDERED: DEXAMETHASONE SOD PHOSPHATE 4 MG/ML 1 ML VIAL ONE (12:51)
[2025-02-06] MEDS ORDERED: ROPIVACAINE 5 MG/ML 30 ML VIAL ONE (12:51)
[2025-02-06] MEDS ORDERED: MIDAZOLAM 2 MG/2 ML VIAL ONE (12:51)
[2025-02-06] MEDS: ceFAZolin 2 GM in DEXTROSE 5% IN WATER 50 ML IVPB PRN (12:54)
--- NOTE | 2025-02-06 13:17 | P.ANPRN ---
Procedure Note - Anesthesia - Nerve Block Performed Left Gary Single Time Out Performed: Yes ([id number]) Date of Procedure: 02/06/25 Procedure Start Time: 12:06 Procedure Stop Time: 12:10 Location of Patient: PreOp Indication: Acute Post-Operative Pain, Requested by Surgeon Specifically requested for management of pain by DrBrant: Nnamdi Sánchez Sedation Type: Sedate with meaningful contact maintained Preparation: Sterile Prep Position: Supine Catheter: None Needle Types: Pajunk Needle Gauge: 21 Ultrasound used to visualize needle placement: Yes Ultrasound used to observe medication spread: Yes Injectate: 0.5% Ropivacaine (see comment for volume) (30cc+decadron 4mg) Blood Aspirated: No Pain Paresthesia on Injection Noted: No Resistance on Injection: Normal Image Stored and Saved: Yes Events: Uneventful and Well Tolerated
[2025-02-06] MEDS: ceFAZolin 1,000 MG in SODIUM CHLORIDE 0.9% 1,000 ML IRRIGATION ONE (13:27)
[2025-02-06] MEDS: LACTATED RINGERS 1,000 ML IV ONE (14:12)
[2025-02-06] MEDS ORDERED: NALOXONE 0.4 MG/ML 1 ML VIAL IV PRN (14:39)
[2025-02-06] MEDS ORDERED: HYDROmorphone 0.5 MG/0.5 ML SYRINGE IVP PRN ×2 (14:39)
[2025-02-06] MEDS ORDERED: ONDANSETRON 4 MG/2 ML VIAL IVP PRN (14:39)
[2025-02-06] MEDS ORDERED: HYDROcodone/APAP 5-325MG 1 EACH TAB PO PRN (14:39)
--- NOTE | 2025-02-06 14:39 | P.OP ---
Date of Procedure: 02/06/25 Preoperative Diagnosis: Left hip osteoarthritis Postoperative Diagnosis: Left hip osteoarthritis Procedure(s) Performed: Direct anterior left total hip arthroplasty Implants: 1. DePuy Corail 135 degree standard collared KA size 12 press-fit femoral stem 2. DePuy Revelo 52 mm press-fit acetabular shell 3. DePuy Revelo neutral polyethylene acetabular liner 36 mm ID 62 mm OD 4. Biolox delta ceramic femoral head +1.5 36 mm Anesthesia: regional (Erector spinae block), spinal Surgeon: Nnamdi Sánchez Allergist Immunologist #1: Teto Schneider Estimated Blood Loss (ml): 50 Pathology: none sent Condition: stable Disposition: PACU Indications for Procedure: 74-year-old patient seen with symptomatic left hip osteoarthritis. After having treatment options discussed, he elected to proceed with direct anterior left total hip arthroplasty. Operative Findings: See description of procedure Description of Procedure: The patient was taken to the operative suite. Patient underwent a spinal anesthetic by the department of anesthesia. Patient was then transferred to the [place] table. Patient was given preoperative IV antibiotics and TXA. Both lower extremities were placed in standard leg spars. The hip was then prepped and draped in the normal sterile orthopedic fashion. A standard anterior incision was made beginning 3 cm lateral and 1 cm distal to the ASIS extending 10 cm. Dissection was then carried down through the subcutaneous soft tissues down to the fascia overlying the tensor fascia christiano. An incision was now made through the fascia. Careful dissection was taken down exposing the tensor fascia christiano muscle. A Cobra retractor was now placed along the medial femoral neck and a second one along the lateral femoral neck. The venous circumflex vessels were now identified, cauterized and clipped. We identified the anterior hip capsule. An incision was made through the hip capsule along the lateral border. I performed a partial anterior capsulectomy. Retractors were now placed around the femoral neck itself. A femoral neck cut was now made with a sagittal saw. It was completed with an osteotome at the lateral neck area. The femoral head was now removed without difficulty. The extremity was now rotated to 60 of external rotation. It was locked in position. Residual labrum was now debrided out. Serial reaming was performed of the acetabulum while Denton SALAZAR assisted holding an anterior retractor for exposure. Once we reached the appropriate size and a trial was position and fit nicely. The appropriate size was now chosen opened and made available. It was introduced into the acetabulum without difficulty. The C-arm/fluoroscopy was now brought into the operative field. We made sure we had a true AP pelvic view. We now under direct C- arm/fluoroscopy introduced into the acetabular component with appropriate version and inclination. I held the cup in appropriate position well Denton SALAZAR used a mallet to seat the acetabular component. I noted the component now to be well seated and stable. Acetabular cup introduce her was removed. The C-arm was pulled back. An appropriate liner was introduced and clicked into position. It was felt to be stable. At this point retractors were removed. The extremity was now placed into 140 external rotation with no traction. The leg was now dropped to the ground and adducted. Appropriate retractors were now positioned along the proximal femur. We also placed our femoral look into position. Additional capsular releasing was performed to gain access to the proximal femur. We now used a box osteotome. A canal finder was now utilized. Serial broaching was now performed with the assistance of Denton SALAZAR tapping the broaches down with a mallet while held the broach in appropriate rotation and position. This was done until we reached the appropriate size with good overall rotational stability. Appropriate calcar planing was performed. A trial head/neck was placed into position. The hip was now reduced. The C- arm/fluoroscopy was brought back into the operative field. I obtained an AP pelvis demonstrating adequate leg length alignment. The trial components appeared adequately sized and positioned. . The C-arm/fluoroscopy was pulled back. Retractors were repositioned and the hip was dislocated. The leg was again taken down to the ground and adducted. Appropriate retractors were repositioned as well as the femoral hook. All trial components were removed. The femoral implant was opened along with the femoral head. The femoral implant was introduced on the appropriate handle into our pre-broached area. I held the component position well Denton SALAZAR used a mallet to seat the femoral component. The femoral component was now noted to be well seated and stable.. The femoral head was introduced with good positioning and fixation noted. Retractors were now removed. The hip was now reduced. There appeared be good positioning of the hip confirmed on intraoperative fluoroscopy. Spot films were obtained to document this. A second gram of TXA was given. The deep and superficial soft tissues were infiltrated with local analgesic. Bipolar cautery had been utilized intermittently through the procedure for hemostasis. The wound was irrigated copiously with pulse lavage mechanical irrigation. The fascia was repaired with Vicryl suture. The subcutaneous soft tissues were repaired in layers with Vicryl suture. The skin was approximated with pernio/Dermabond. Sterile dressings were applied. Patient was then awakened, transferred to a bed and taken to recovery in stable condition. Denton SALAZAR assisted with the complex procedure.
--- NOTE | 2025-02-06 14:40 | XR ---
EXAMINATION TYPE: XR Hip Limited LT, FL guidance operating room DATE OF EXAM: 02/06/2025 FLUOR[address]COPY Left hip replacement. Dr. Sánchez Fluoro time: 9 sec DAP: 1.2244 2 images are submitted showing left total hip arthroplasty. Both acetabular cup and femoral stem comp onents appear well-seated without periprosthetic fracture. Alignment grossly anatomic. [facility], , 02/06/2025 2:37 PM
[2025-02-06] MEDS: HYDROmorphone 0.5 MG/0.5 ML SYRINGE IVP PRN (18:25)
[2025-02-06] MEDS: HYDROcodone/APAP 7.5-325MG 1 EACH TAB PO PRN (19:48)
[2025-02-06] MEDS: ASPIRIN 81 MG PO SCH (21:53)
[2025-02-06] MEDS: SENNOSIDES-DOCUSATE SODIUM 1 EACH TAB PO SCH (21:53)
[2025-02-06] MEDS: CITALOPRAM HYDROBROMIDE 20 MG TAB PO SCH (22:44)
[2025-02-07 08:11] LABS: HCT 40.9 % (39.6-50.0); HGB 13.7 g/dL (13.0-17.0); MCH 30.9 pg (27.0-32.0); MCHC 33.5 g/dL (32.0-37.0); MCV 92.3 FL (80.0-97.0); Mean Platelet Volume 10.4 FL (9.5-12.2); NRBC Per 100 WBC 0 X 10*3/uL (0.00-0.01); Platelet Count 317 X 10*3/uL (140-440); RBC 4.43 X 10*6/uL (4.40-5.60); RDW 12.4 % (11.5-14.5); WBC 13.47 X 10*3/uL (4.50-10.00)
[2025-02-07] MEDS: hydroCHLOROthiazide 25 MG TAB PO SCH (08:11)
[2025-02-07] MEDS: FAMOTIDINE 20 MG TAB PO SCH (08:11)
[2025-02-07 08:12] LABS: Basophils # (A) 0.01 X 10*3/uL (0.00-0.10); Basophils % (A) 0.1 %; Eosinophils # (A) 0.01 X 10*3/uL (0.04-0.35); Eosinophils % (A) 0.1 %; Lymphocytes # (A) 1.65 X 10*3/uL (0.90-5.00); Lymphocytes % (A) 12.2 %; Monocytes % (A) 11.1 %; Neutrophils # (A) 10.24 X 10*3/uL (1.80-7.70); Neutrophils % (A) 76.1 %
[2025-02-07] MEDS: LOSARTAN 50 MG TAB PO SCH (08:12)
[2025-02-07] MEDS: carvediloL 6.25 MG TAB PO SCH (08:12)
[2025-02-07 08:52] VITALS: BP 126/79; PULSE 88; RESP 16; TEMP 98
--- NOTE | 2025-02-07 11:22 | P.CONS ---
History of Present Illness - Reason for Consult Consult date: 02/07/25 Medical management Requesting physician: Nnamdi Sánchez - Chief Complaint Status post direct anterior total hip arthroplasty - History of Present Illness This is a pleasant 74-year-old gentleman past medical history significant for osteoarthritis, atrial fibrillation, hypertension Hodgkin's lymphoma with last chemo September 2022, right eye glaucoma, ocular migraines left parietal craniotomy for meningioma, former nicotine dependence, obesity and multiple other medical issues admitted with left hip osteoarthritis, failed conservative management, status post direct anterior left total hip arthroplasty, postop day #1. Tolerated procedure well. Pain controlled. Participated with PT ambulating and stairs, tolerated exertion well. Denies lightheadedness dizzines s or focal deficits. Denies headache. Denies chest pain, palpitations or shortness of breath. Denies nausea vomiting or diarrhea. Denies abdominal pain. WBC 13.47, hemoglobin 13 point7, platelets 317. Review of Systems Constitutional: Denied any fatigue denied any fever. Cardio vascular: denied any chest pain, palpitations Gastrointestinal denied any nausea vomiting Pulmonary: Denied any shortness of breath cough Neurologic denied any new focal deficits ROS Statement: Those systems with pertinent positive or pertinent negative responses have been documented in the HPI. ROS Other: All systems not noted in ROS Statement are negative. Past Medical History Past Medical History: Atrial Fibrillation, Cancer, Eye Disorder, Hypertension, Osteoarthritis (OA) Additional Past Medical History / Comment(s): Hodgkins Lymphoma with last chemo September 2022, R eye glaucoma, occular migaines History of Any Multi-Drug Resistant Organisms: None Reported Past Surgical History: Joint Replacement, Tonsillectomy Additional Past Surgical History / Comment(s): Port R side of chest, core needle biopsy neck, excisional core needle biopsy, kobe knee replacements, left parietal craniotomy for meningioma, cataract removed right eye Past Anesthesia/Blood Transfusion Reactions: No Reported Reaction Additional Past Anesthesia/Blood Transfusion Reaction / Comm: Pt has never received blood. Past Psychological History: No Psychological Hx Reported Additional Psychological History / Comment(s): Pt resides with his spouse. Smoking Status: Former smoker Past Alcohol Use History: None Reported Additional Past Alcohol Use History / Comment(s): quit smoking 1973, hx of 2 ppd., smoked 10 years. Past Drug Use History: None Reported - Past Family History Mother Family Medical History: Cancer Additional Family Medical History / Comment(s): bone cancer Father Family Medical History: Cancer Additional Family Medical History / Comment(s): lung cancer Medications and Allergies Home Medications and Allergies Comment(s): PHYSICAL EXAM: VITAL SIGNS: [Reviewed] GENERAL: Pleasant 74-year-old male, sitting up in chair, alert and oriented x 3, no acute distress. HEENT: Atraumatic, normocephalic conjunctivae normal. eyes normal. NECK: Supple, no JVD. CARDIOVASCULAR: S1, S2 regular.. No murmur RESPIRATION: Unlabored, equal air entry, essentially clear to auscultation with bilateral bases diminished. ABDOMEN: Soft, nondistended, nontender . No guarding. no masses appreciated, positive bowel sounds. LEGS: Left lower extremity dressing clean dry and intact, minimal edema. Denies calf tenderness, peripheral pulses intact. NERVOUS SYSTEM: Cranial N 2-12 grossly normal. No focal deficits. Strength and sensation grossly intact. Skin: Warm and dry, no rash Home Medications Medication Instructions Recorded Confirmed Type Apixaban [Eliquis] 5 mg PO BID 06/20/21 02/01/25 History Citalopram Hydrobromide 20 mg PO HS 06/20/21 02/06/25 History [Citalopram HBr] Losartan Potassium 100 mg PO QAM 06/20/21 02/06/25 History carvediloL phosphate [Coreg Cr] 20 mg PO QAM 06/20/21 02/06/25 History hydroCHLOROthiazide 25 mg PO QAM 06/20/21 02/06/25 History Acetaminophen [Tylenol Extra 1,000 mg PO Q6H PRN 02/14/22 02/06/25 History Strength] Brimonidine Tartrate [Alphagan P 1 drops RIGHT EYE QAM 04/08/22 02/06/25 History 0.2% Ophth Soln] Dorzolamide HCl/Pf [Dorzolamide 2% 1 drop RIGHT EYE DAILY 02/01/25 02/06/25 History Eye Drop] Multivitamins, Thera [Multivitamin 1 tab PO DAILY 02/01/25 02/01/25 History (formulary)] timoloL maleate [timoloL maleate 1 applic RIGHT EYE DAILY 02/01/25 02/06/25 History 0.25%] HYDROcodone/APAP 7.5-325MG [Union 1 each PO Q6HR PRN #28 tab 02/07/25 Rx 7.5] Sennosides/Docusate Sodium 2 each PO DAILY PRN #20 tablet 02/07/25 Rx [Senna-S 8.6-50 mg Tablet] Allergies Allergy/AdvReac Type Severity Reaction Status Date / Time codeine Allergy Mild Itching Verified 02/06/25 11:26 Physical Exam Vitals: Vital Signs Temp Pulse Pulse Resp BP BP Pulse Ox 02/07/25 07:30 98 F 88 16 126/79 98 02/07/25 01:49 98.0 F 97 17 133/82 96 02/06/25 20:56 94 142/87 96 02/06/25 20:41 86 116/79 96 02/06/25 20:27 92 128/87 96 02/06/25 20:11 95 119/81 96 02/06/25 19:56 89 130/78 96 02/06/25 19:41 94 129/86 95 02/06/25 19:27 73 113/62 96 02/06/25 19:11 99 150/93 97 02/06/25 18:56 97.6 F 92 156/96 98 02/06/25 18:30 85 16 119/86 97 02/06/25 18:00 77 16 122/86 97 02/06/25 17:30 86 16 129/80 96 02/06/25 17:00 77 16 121/81 96 02/06/25 16:45 81 16 124/87 97 02/06/25 16:27 84 14 120/82 96 02/06/25 16:12 77 16 107/71 97 02/06/25 15:57 78 15 113/80 96 02/06/25 15:42 74 14 110/73 95 02/06/25 15:27 79 15 104/73 96 02/06/25 15:12 81 17 107/69 96 02/06/25 14:57 96.8 F L 82 18 96/58 95 02/06/25 12:39 84 18 119/86 98 02/06/25 12:25 18 114/74 98 02/06/25 12:10 18 132/87 95 02/06/25 12:05 18 133/99 95 Intake and Output 02/06/25 02/07/25 02/07/25 22:59 06:59 14:59 Intake Total 300 Balance 300 Intake: IV 300 Other: # Voids 1 Weight 103.1 kg Results CBC & Chem 7: 02/07/25 03:37 Labs: Abnormal Lab Results - Last 24 Hours (Table) 02/07/25 Range/Units 03:37 WBC 13.47 H (4.50-10.00) X 10*3/uL Immature Gran # 0.06 H (0.00-0.04) X 10*3/uL Neutrophils # 10.24 H (1.80-7.70) X 10*3/uL Monocytes # 1.50 H (0.20-1.00) X 10*3/uL Eosinophils # 0.01 L (0.04-0.35) X 10*3/uL Assessment and Plan Assessment: Osteoarthritis, status post direct anterior left total hip arthroplasty Postoperative atelectasis, expected outcome Leukocytosis mild, related to the above and reactive Chronic atrial fibrillation Hypertension Hodgkin's lymphoma, last chemo September 2022 Glaucoma Former nicotine dependence Morbid obesity, BMI 33 ........... multiple other medical issues Plan: Continue on current medication regimen ,monitoring and symptomatic treatment. Patient has history of A-fib and Eliquis should be resumed as soon as cleared by primary-orthopedic surgery. Aggressive pulmonary toileting with incentive spirometer reinforced. Pain management as per primary. PT. Discharge planning in progress as per orthopedic surgery. Follow-up with PCP in 1 week. Thank you for the consult. The impression and plan of care has been dictated as directed. : I performed a history and examination of this patient, discussed the same with the dictator. I agree with the dictator's note ,documented as a scribe. Any additional findings or plans will be noted.
[2025-02-07] MEDS: DORZOLAMIDE HCL 2% DROPS 10 ML BTL RIGHT EYE SCH (11:44)
[2025-02-07] MEDS: TIMOLOL 0.25% OPHTH DROPS 5 ML BTL RIGHT EYE SCH (11:45)
[2025-02-07] MEDS: BRIMONIDINE TARTRATE 0.2% DROPS 5 ML BTL RIGHT EYE SCH (11:45)
[2025-02-07] MEDS: PANTOPRAZOLE 40 MG/10 ML VIAL IVP SCH (11:46)
--- NOTE | 2025-02-07 12:33 | P.PN ---
Subjective Progress Note Date: 02/07/25 Principal diagnosis: Status post direct anterior left total hip arthroplasty Patient examined today at bedside, he is up in his hospital chair. He did very well with physical therapy ambulating the halls and also the stairs. He is urinating with no issues. His pain is well-controlled. He denies headaches, lightheadedness, chest pain or shortness of breath Objective - Vital Signs Vital signs: Vital Signs Temp 98 F 02/07/25 07:30 Pulse 88 02/07/25 07:30 Resp 16 02/07/25 07:30 BP 126/79 02/07/25 07:30 Pulse Ox 98 02/07/25 07:30 FiO2 Intake & Output 02/06/25 02/07/25 02/07/25 18:59 06:59 18:59 Intake Total 1551 Output Total 50 Balance 1501 Weight 103.1 kg 103.1 kg Intake: IV 1551 Output: Estimated Blood Loss 50 Other: # Voids 1 - Exam Left lower extremity: Incision is clean, dry, and intact. The foam dressing is in good condition. There is minimal soft tissue swelling and ecchymosis surrounding the medial and lateral aspects of the incision. Calf is soft, no tenderness with palpation. Plantar flexion, dorsiflexion, EHL, FHL are intact. Sensory exam to light touch throughout the extremity is intact, dorsal pedis pulses 2+. - Labs CBC & Chem 7: 02/07/25 03:37 Labs: Abnormal Lab Results - Last 24 Hours (Table) 02/07/25 Range/Units 03:37 WBC 13.47 H (4.50-10.00) X 10*3/uL Immature Gran # 0.06 H (0.00-0.04) X 10*3/uL Neutrophils # 10.24 H (1.80-7.70) X 10*3/uL Monocytes # 1.50 H (0.20-1.00) X 10*3/uL Eosinophils # 0.01 L (0.04-0.35) X 10*3/uL Assessment and Plan Assessment: Postoperative day #1 status post direct anterior left total hip arthroplasty Plan: Pain control, plan for discharge home on oral medication DVT prophylaxis, will resume his Eliquis Wound care instructions discussed, this to include bandage removal/changing, showering instructions Icing and elevating techniques discussed Home PT/nursing after discharge Medical recommendations appreciated Discharge planning: Stable for discharge home today Time with Patient: Less than 30
[2025-02-07] MEDS: MULTIVITAMINS, THERA 1 EACH TAB PO SCH (12:34)
--- NOTE | 2025-02-07 12:37 | P.DS ---
Providers Date of admission: 02/07/2024 Expected date of discharge: 02/07/25 Attending physician: Nnamdi Sánchez Consults: 02/06/25 14:39 Consult Physician Routine Consulting Provider: Ronaldo Bui Reason/Comments: Medical management Do you want consulting provider notified?: Yes Primary care physician: Ronaldo Bui Hospital Course: Date of admission: 02/06/2025 Date of discharge: 02/07/2025 Admission diagnosis: Status post direct anterior left total hip arthroplasty Discharge diagnosis: Same Attending physician: Dr. Sánchez Surgical procedures: Direct anterior left total hip arthroplasty Brief history: Patient is a 74-year-old male with a history of progressive primary left hip osteoarthritis. At this point patient has failed conservative treatment measures and has opted to proceed with a elective direct anterior left total hip arthroplasty. Hospital course: Details of patient's surgery can be found in operative report. Patient tolerated the procedure well and was subsequently transported to orthopedic floor. Patient's orthopeidc and medical care was provided daily. Patient had daily laboratory tests performed for evaluation of overall blood cou nts. Patient had daily physical therapy to include strengthening range of motion as well as education with walker ambulation. Patient was treated with Eliquis for their postoperative DVT prophylaxis during their inpatient stay. Patient was noted to have a relatively uneventful postoperative course. Patient reported satisfactory pain control with oral pain medications by postoperative day 0. Patient showed satisfactory progress with physical therapy. Patient moved steadily through the program and had no difficulty meeting the goals by postoperative day 1. Given patient's otherwise satisfactory course and having met physical therapy goals, plan is to discharge patient home on postoperative day 1. Discharge condition/disposition: Patient will be discharged home in stable condition. Discharge medications: Instructions are given on resumption of patient's normal daily medications per primary care recommendation, in addition patient will be prescribed . Gleason 7.5 mg / 325 mg, senna S Discharge instructions: 1. Wound care and infection precautions, keep incision dry and covered while showering, no lotions, creams, moisturizers. No soaking, tubs, pools, hottubs. Do not scrub over the incision. 2. Weight-bear as tolerated with walker / cane until follow-up. 3. Ice and elevate when necessary. Do not exceed 20 minutes per hour with ice pack. 4. Utilize compression sleeve until seen at first follow up appointment. 5. Visiting nursing care. 6. Home physical therapy. 7. Pain meds and anticoagulants per prescription. 8. Pain medication has potential to cause constipation. Increase oral fluid and fiber intake. Contact primary care provider if you have not had a bowel movement within 48 hours after discharge 9. No anti-inflammatory medication until discussed at first post operative visit, this including Motrin, Aleve, Mobic, Diclofenac, aspirin. 10. Follow up in office at 2 weeks postop with Denton Schneider PA-C/Nadeem Olievra 11. Follow up with your primary care doctor 7-10 days after discharge. 12. Contact [facility] with any questions, . Procedures: Left direct anterior total hip arthroplasty Patient Condition at Discharge: Good Plan - Discharge Summary Discharge Rx Participant: Yes New Discharge Prescriptions: New Sennosides/Docusate Sodium [Senna-S 8.6-50 mg Tablet] 2 each PO DAILY PRN #20 tablet PRN Reason: Constipation HYDROcodone/APAP 7.5-325MG [Gleason 7.5] 1 each PO Q6HR PRN #28 tab PRN Reason: Pain No Action Losartan Potassium 100 mg PO QAM hydroCHLOROthiazide 25 mg PO QAM Acetaminophen [Tylenol Extra Strength] 1,000 mg PO Q6H PRN PRN Reason: Pain Brimonidine Tartrate [Alphagan P 0.2% Oph Soln] 1 drops RIGHT EYE QAM Multivitamins, Thera [Multivitamin (formulary)] 1 tab PO DAILY carvediloL phosphate [Coreg Cr] 20 mg PO QAM Apixaban [Eliquis] 5 mg PO BID Citalopram Hydrobromide [Citalopram HBr] 20 mg PO HS Dorzolamide HCl/Pf [Dorzolamide 2% Eye Drop] 1 drop RIGHT EYE DAILY timoloL maleate [timoloL maleate 0.25%] 1 applic RIGHT EYE DAILY Discharge Medication List Apixaban [Eliquis] 5 mg PO BID 06/20/21 [History] Citalopram Hydrobromide [Citalopram HBr] 20 mg PO HS 06/20/21 [History] Losartan Potassium 100 mg PO QAM 06/20/21 [History] carvediloL phosphate [Coreg Cr] 20 mg PO QAM 06/20/21 [History] hydroCHLOROthiazide 25 mg PO QAM 06/20/21 [History] Acetaminophen [Tylenol Extra Strength] 1,000 mg PO Q6H PRN 02/14/22 [History] Brimonidine Tartrate [Alphagan P 0.2% Ophth Soln] 1 drops RIGHT EYE QAM 04/08/22 [History] Dorzolamide HCl/Pf [Dorzolamide 2% Eye Drop] 1 drop RIGHT EYE DAILY 02/01/25 [History] Multivitamins, Thera [Multivitamin (formulary)] 1 tab PO DAILY 02/01/25 [History] timoloL maleate [timoloL maleate 0.25%] 1 applic RIGHT EYE DAILY 02/01/25 [History] HYDROcodone/APAP 7.5-325MG [Gleason 7.5] 1 each PO Q6HR PRN #28 tab 02/07/25 [Rx] Sennosides/Docusate Sodium [Senna-S 8.6-50 mg Tablet] 2 each PO DAILY PRN #20 tablet 02/07/25 [Rx] Follow up Appointment(s)/Referral(s): Teto Schneider PAC [PHYSICIAN [employer] HAND] - 2 Weeks Activity/Diet/Wound Care/Special Instructions: Orthopedic Discharge Instructions: 1. Wound care and infection precautions, keep incision dry and covered while showering, no lotions, creams, moisturizers. No soaking, pools, hot tubs. Do not scrub over incision. 2. Weight-bear as tolerated with walker / cane until follow-up. 3. Ice and elevate when necessary. Do not exceed 20 minutes per hour with ice pack. 4. Utilize compression sleeve until seen at first follow up appointment. 5. Pain meds and anticoagulants per prescription. 6. Pain medication has potential to cause constipation. Increase oral fluid and fiber intake. Contact primary care provider if you have not had a bowel movement within 48 hours after discharge. 7. No anti-inflammatory medication until discussed at first post operative visit, this including Motrin, Aleve, Mobic, Diclofenac. 8. Follow up in office at 2 weeks postop with Denton Schneider PA-C/Nadeem Santillan PA-C 9. Follow up with your primary care doctor 7-10 days after discharge. 10. Contact [facility] with any questions, Wound care instructions: 1. Okay to remove surgical dressing as of 02/15/2025 2. Okay to shower directly over the incision after removal of dressing Discharge Disposition: HOME WITH HOME HEALTH SERVICES
[2025-02-07] MEDS ORDERED: APIXABAN 5 MG TAB PO SCH (21:00)
== END 2025-02-07 15:35 | disposition home health service (06) ==
LOC: OR 11:02 → 4SSUR 14:52 → OR 02-07 15:35
PROVIDERS: ATTEND Orthopaedic Surgery
DX: M16.12 Unilateral primary osteoarthritis, left hip (principal); I48.20 Chronic atrial fibrillation, unspecified; I10 Essential (primary) hypertension; E78.5 Hyperlipidemia, unspecified; E66.01 Morbid (severe) obesity due to excess calories; H40.9 Unspecified glaucoma; Z85.71 Personal history of Hodgkin lymphoma; Z96.642 Presence of left artificial hip joint; Z68.33 Body mass index [BMI] 33.0-33.9, adult; Z90.89 Acquired absence of other organs; Z01.810 Encounter for preprocedural cardiovascular examination; Z96.653 Presence of artificial knee joint, bilateral; Z80.1 Family history of malignant neoplasm of trachea, bronchus and lung; Z98.890 Other specified postprocedural states; Z88.5 Allergy status to narcotic agent; Z79.01 Long term (current) use of anticoagulants; Z79.899 Other long term (current) drug therapy
CPT/HCPCS: 27130; 97161; 64473; 85025; 73501; C1776; J2250; J1100; J0690 ×3; J2405; J3010; J2795; J2704; J1171 ×2